=== PATIENT | female | born 1970 | race Caucasian/White ===

== ENCOUNTER 2024-06-30 17:18 | Emergency (ER) | payer BC ==
[~2024-06-30] VITALS: Ht 160 cm; Wt 59.0 kg
[2024-06-30 18:00] VITALS: TEMP 98.4
[2024-06-30 19:20] VITALS: BP 140/90
[2024-06-30] MEDS ORDERED: TDAP [DIPH/PERTUSSIS/TET] 0.5 ML VIAL IM ONE (19:26)
[2024-06-30] MEDS: TDAP [DIPH/PERTUSSIS/TET] 0.5 ML VIAL IM ONE (19:31)
[2024-06-30 21:00] VITALS: O2SAT 99
[2024-06-30] MEDS: LIDOCAINE 1% INJ 50 ML MDV IJ ONE (21:03)
== END 2024-06-30 21:09 | disposition home or self-care (01) ==
LOC: ER 17:31
DX: S01.511A Laceration without foreign body of lip, initial encounter (principal); Z88.6 Allergy status to analgesic agent; W19.XXXA Unspecified fall, initial encounter; Y93.89 Activity, other specified; Y92.89 Other specified places as the place of occurrence of the external cause; Y99.8 Other external cause status
CPT/HCPCS: 90715